=== PATIENT | male | born 1950 | race Asian ===

== ENCOUNTER → 2016-10-18 | Outpatient (CLI) | payer OTHER ==
--- NOTE | ~2016-10-18 | P ---
[facility] [place] [address] PROCEDURE REPORT Name: DEMI WALLS Room #: REG [facility]#: [id number] Admission: 10/18/16 Attend Phys: Dustin Del Toro MD Discharge: Date of : 46 Report #: [id number] THIS REPORT FOR: //name// CC: Anthony Del Toro DATE OF SERVICE: 10/18/2016 PROCEDURE: Fiberoptic bronchoscopy with bronchoalveolar lavage, right upper lobe. 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 PROCEDURE NOTATION: After discussing risks, benefits of planned procedure with the patient, he desired to proceed. After obtaining informed consent, he was brought to bottle labeler [facility] and he was placed on continuous cardiopulmonary monitoring and supplemental oxygen and then given 4% lidocaine nebulized to anesthetize the upper respiratory tract. Once accomplished, he received conscious sedation, a total of 2 mg of Versed were required to provide adequate sedation. Once complete, bronchoscope was passed through an oral biteblock until the vocal cords were visualized. Vocal cords moved appropriately both before and after procedure. A 1% lidocaine was instilled in the vocal cords to provide topical anesthesia. The bronchoscope was then passed in the trachea, 1% lidocaine was instilled in the tracheobronchial tree bilaterally to provide topical anesthesia. Once complete, airways were surveyed. FINDINGS: Mainstem, lobar, segmental and subsegmental bronchi were all explored with some minor bronchiectasis appreciated. No significant secretions noted. Bronchoscope was then passed in the right upper lobe where bronchial lavage performed. No biopsies were performed due to prior workup at [facility]. The patient tolerated well. No noted complications. IMPRESSION: Abnormal x-ray and history reactive PPD status post bronchioalveolar lavage in the right upper lobe. PLAN: Await microbiologic and cytologic tests. <ELECTRONICALLY SIGNED> By: Dustin Del Toro MD 10/19/16 1338 [id number] 2230 Dustin Del Toro MD /nt
--- NOTE | ~2016-10-18 | CNG ---
[facility] [place] [address] CYTO-NONGYN REPORT PROCEDURE Name: DEMI ESPINOZA Room #: REG [facility] Edgardo.#: [id number] Admission: 10/18/16 Date of : 46 Discharge: Report #: [id number] Path Case #: [id number] CYTOPATHOLOGY REPORT COLLECTION DATE: 10/18/2016 RECEIVED DATE: 10/18/2016 SUBMITTING PHYS: Dr. Dustin Del Toro OTHER PHYS: Dr. Kraig Kahn CLINICAL HISTORY: Abnormal CT. SPECIMEN(S) RECEIVED: A.Bronchoalveolar lavage, RUL * * * * * * * * * * * * FINAL DIAGNOSIS: A. Bronchoalveolar lavage, RUL: - No malignant cells identified. - Bronchial epithelial cells, alveolar macrophages, and numerous squamous epithelial cells identified. COMMENT: Please refer to the microbiology specimens as clinically indicated. (CLW;10/19/16) PATHOLOGIST: Trista Smith M.D. REPORT ELECTRONICALLY SIGNED BY: Trista Smith M.D. DATE/TIME: 10/19/2016 11:22 * * * * * * * * * * * * GROSS PATHOLOGY: A. Bronchoalveolar lavage, RUL: The specimen is submitted unfixed, labeled "Demi Espinoza". Received by the Cytology Department is 20 mL of cloudy fluid. One ThinPrep slide was prepared. (clt 10.18.2016) BUTCHER ALL ROUND(S): ALEX Alcazar(ASCP) INITIAL CPT CODE(S): A; 62733 Professional services performed by [facility] at [facility] [address], [place] [address] Technical services performed by [facility] at [address] [place] [address]., [address], [place] [address]. [facility] [address] [place] [address] CYTO-NONGYN REPORT PROCEDURE Name: DEMI ESPINOZA Room #: REG [facility] Reynoso.#: [id number] Admission: 10/18/16 Date of : 46 Discharge: Report #: [id number] Path Case #: [id number], [address] [place] [address] PHONE: [phone] DIRECTOR: Derian Love M.D. * * * END OF REPORT * * *
== END | disposition home or self-care (01) ==
LOC: CATH 12:09
DX: J47.9 Bronchiectasis, uncomplicated (principal)